=== PATIENT | male | born 1995 | race Caucasian/White ===

== ENCOUNTER 2023-04-16 14:08 | Emergency (ER) | payer MEDICARE, SELFPAY ==
[2023-04-16 14:11] VITALS: BP 109/72; PULSE 114; RESP 14; TEMP 37.5; O2SAT 95
--- NOTE | 2023-04-16 14:34 | W.ED.GENAD ---
Discharge Plan Discharge Details Chief Complaint: PsychEval Clinical Impression: Depression Primary Care Provider: Gurinder Clark ED Provider: Isidro Mckeon Home Meds and New Rx's Prescriptions: No Action No Known Home Meds Medical Decision Making 27 yo male who states he has a hx of depression and has been [place] [facility] [place] for [place]/si who comes in with cc of a month or so of worsening depression and thoughts of self harm with a knnife. Denies attempting to harm himself. HE is ambulatory with normal gait on arrival, caox4 calm and cooperative. HE has clear speech, no focal deficits, cn ii-xii intact. Hr minimally elevated so can't use smart clearance form, will order screening labs and if unremarkable have [facility] evaluate. labs unremarkable, pt stable, medically cleared to see [facility], ua/urine drug screen pending pt seen by [facility] and will be seeking voluntary placement Differential Diagnosis Differential Diagnosis: depression,si Lab Data Lab results reviewed: Yes I reviewed the patient's lab results. HPI General Mode of arrival: ambulatory (with vsp). Date/Time Provider Initiated Documentation: 04/16/23 14:18. Limitations to Documentation: no limitations. Information obtained by: patient. History of Present Illness 27 year old M presents to the emergency department with the chief complaint of depression/si, described as moderate, Patient started experiencing this month(s) (1) and it has been constant. No relieving factors improve symptom(s), No exacerbating factors reported . Patient notes no other symptoms.. Patient did receive the following treatments prior to arrival, none Related Data Home Medications Medication Instructions Recorded Confirmed Unknown [No Known Home Meds] 04/16/23 04/16/23 Allergies Allergy/AdvReac Type Severity Reaction Status Date / Time amoxicillin Allergy Severe Anaphylaxis Verified 04/16/23 14:52 azithromycin Allergy Severe Anaphylaxis Verified 04/16/23 14:52 bee venom protein (honey bee) Allergy Severe Anaphylaxis Verified 04/16/23 14:52 Latex, Natural Rubber Allergy Severe Anaphylaxis Verified 04/16/23 14:52 penicillins Allergy Severe Anaphylaxis Uncoded 04/16/23 14:52 General Stated Complaint: PsychEval ESTHER: 2 Review of Systems All systems reviewed & are unremarkable except as noted in HPI and below Constitutional Constitutional: Denies chills, Denies fever(s) and Denies weakness Cardiovascular Cardiovascular: Denies chest pain and Denies dyspnea Respiratory Respiratory: Denies cough and Denies dyspnea Gastrointestinal Gastrointestinal: Denies abdominal pain, Denies nausea and Denies vomiting Genitourinary Genitourinary: Denies dysuria Musculoskeletal Musculoskeletal: Denies joint swelling Neurologic Neurologic: Denies weakness PFSH All Active Problems (Updated 04/16/23 @ 17:17 by Isidro Mckeon MD) Depression (Chronic) Social History Smoking/Tobacco Use Status: Never Smoking risk assessment performed?: Yes Drug use: Daily Substance use type: marijuana Do you feel safe at home: Yes Do you feel safe in your relationship?: Yes Exam Const General: no acute distress Orientation: alert HENMT Head: normal to inspection Ears: external ears normal General nose exam: external nose normal Mouth: moist mucous membranes Eyes General: appearance normal, both eyes and all related structures Neck Neck: normal visual inspection Resp Effort & Inspection: normal respiratory effort and able to speak in complete sentences Cardio Rate: regular rate Skin General skin exam: no rashes or lesions noted Neuro General: patient alert and patient oriented x3 Extrem General: normal to inspection Psych Appearance: well kempt Speech and Movement: not agitated and speech clear Course Vital Signs Vital signs: Vital Signs Temperature 37.5 C 04/16/23 14:11 Pulse 114 H 04/16/23 14:11 Respiratory Rate 14 04/16/23 14:11 Blood Pressure 109/72 04/16/23 14:11 Pulse Oximetry 95 04/16/23 14:11 Temperature 37.5 C 04/16/23 14:11 Temperature Source Skin 04/16/23 14:11 Pulse 114 H 04/16/23 14:11 Respiratory Rate 14 04/16/23 14:11 Blood Pressure 109/72 04/16/23 14:11 Blood Pressure Position Sitting 04/16/23 14:11 Pulse Oximetry 95 04/16/23 14:11 Oxygen Delivery Method Room Air 04/16/23 14:11 Oxygen Flow Rate 0 04/16/23 14:11 Pain Level 0 04/16/23 14:11
[2023-04-16 15:03] LABS: Abs Immature Grans 0.03 10^3/uL (0.0-0.06); Absolute Basophil Count 0.04 10^3/uL (0.0-0.2); Absolute Eosinophil Count 0.05 10^3/uL (0.0-0.7); Absolute Lymphocyte Count 0.91 10^3/uL (1.2-3.4); Basophils % 0.4; Eosinophils % 0.5; HCT 44.1 % (40.0-50.0); HGB 14.5 g/dL (13.5-17.5); Immature Grans % 0.3; Lymphocytes % 8.4; MCH 28.3 pg (27.0-33.0); MCHC 32.9 % (32.0-36.0); MCV 86 fL (80-95); MPV 8.3 fL (8.0-11.0); Monocytes % 3.7; Neutrophils % 86.7; Platelet Count 275 10^3/uL (130-400); RBC 5.12 10^6/uL (4.36-5.78); RDW 12.5 % (11.8-14.1); RDW-SD 39.2 fL; WBC 10.81 10^3/uL (4.4-10.8)
[2023-04-16 15:08] LABS: Absolute Neutrophil Count 9.37 10^3/uL (1.2-6.7)
[2023-04-16 15:27] LABS: ALT 43 U/L (16-63); AST 37 U/L (15-37); Albumin 4.1 g/dL (3.4-5.0); Alkaline Phosphatase 92 U/L (46-116); Anion Gap 9.2 mmol/L (3-11); BUN 16 mg/dL (7-18); Bilirubin, Total 0.2 mg/dL (0.2-1.0); CO2 27.8 mmol/L (21.0-32.0); Calcium 9.4 mg/dL (8.5-10.1); Chloride 105 mmol/L (98-107); Estimated GFR 105.79 (mL/min/1.73m2); Glucose 99 mg/dL (74-106); Potassium 3.6 mmol/L (3.5-5.1); Sodium 142 mmol/L (136-145); TSH (W/Ref FT4) 0.85 uIU/mL (0.36-3.74); Total Protein 7.8 g/dL (6.4-8.2)
[2023-04-16 15:35] LABS: Salicylate < 2.8 mg/dL (<2.8)
[2023-04-16 15:37] LABS: Acetaminophen < 2 ug/mL (10-30); ETHANOL BLOOD < 3.0 mg/dL (<10)
--- NOTE | 2023-04-16 16:34 | CMSP_ITS ---
Date of service: 04/16/23 Time of Service: 16:34 Care Management Safety Plan Status Status: Voluntary Reason for Wait Reason for Wait: Inpatient Admission Safety Plan Safety Plan: Derek is a 27 year old man admitted on 04/16/23 with a history of depression, who has had worsening depression with thoughts of self harm with a knife. He was brought to the ED by P for SI with a knife. He is seeking voluntary psychiatric placement. VOLUNTARY FOR INPATIENT PSYCHIATRIC STABILIZATION.? Patient is appropriate in all interactions since arriving at [facility]; Pt has demonstrated appropriate coping and communication skills, has articulated his or her needs and concerns and is fully engaged during staff interactions. Safety plan has been established with patient, and care team, to adhere to patient goals, identify restrictions based on behavioral status, address nutrition, and determine allowed personal belongings, tools for hygiene and personal care. Determine level of activity including ambulation, level of supervision, visitors, and determine privileges based on behaviors and level of engagement by pt. SAFETY PLAN: 1. Will remain on suicide precautions. In Paper Clothes 2. Will remain in room under direct supervision of one-on-one staff at all times provided by [employer]; BO, GWOT IA/ILO INTELLIGENCE SUPPORT forensic pathologist. 3. May have paper cups, plates, finger foods as well as a cardboard spoon with which to eat meals. 4. Follow [facility] Management of the Admitted Behavioral Health Patient policy. 5. Comfort bath system only, shower permitted with escort at RN discretion. 6. No personal belongings-soft items permitted at RN discretion. 7. Visitors-none at this time. 8. Activities: soft cart items approved per RN discretion. 9.? Bathroom privileges with escort in the ED, available in room without limitation on M/S. 10. Phone: contact limited to family at this time, via cordless phone at RN discretion. 11. Due to VOLUNTARY status, if patient wishes to leave [facility], staff will contact [facility] Crisis Screener ([phone]) and On-Call Ammunition Assembly I Laborer ([phone]) as soon as possible. In the event of elopement, notify [facility] Police ([phone]). Patient is currently voluntarily at [facility] and seeking inpatient admission when a bed becomes available. [facility] Frontline Composite Science Teacher will continue seeking placement. Please contact the Radio Interference Investigator Ammunition Assembly I Laborer ([phone]) and [facility] Composite Science Teacher ([phone]) for any needed changes in the Safety Plan. Safety plan has been provided to interdepartmental care team.
--- NOTE | 2023-04-16 22:41 | W.EDPROG ---
Date of service: 04/16/23 Time of Service: 23:00 Medical Decision Making This patient was signed out to me. Please see previous notes for H&P and initial eval. In brief, 27yo M presenting voluntary for SI, thoughts of self harm with a knife. Medically cleared, pending psych placement. No acute events overnight. Plan remains voluntary psych placement pending bed availability. Sign Out Sign Out Data: Sign Out Comment: voluntary for depression/si, no issues during shift Last updated by Isidro Mckeon MD at 04/16/23 17:18 Sign Out Comment: 27yo M, SI, voluntary. No acute behavioral events overnight. Pending placement. Last updated by Adriana Randolph MD at 04/17/23 04:30 Discharge Plan Discharge Details Chief Complaint: PsychEval Clinical Impression: Depression Primary Care Provider: Gurinder Clark ED Provider: Adriana Randolph Home Meds and New Rx's Prescriptions: No Action No Known Home Meds
--- NOTE | 2023-04-17 07:38 | W.EDPROG ---
Date of service: 04/17/23 Time of Service: 07:38 Medical Decision Making PSYCH BOARDER The patient is medically stable for psychiatric admission under voluntary EE status . There are no available psychiatric beds at this time, so ED Holding orders have been entered and the transfer process has been initiated. Patient is being monitored per protocol, is stable without current issues. Sign Out Sign Out Data: Sign Out Comment: voluntary for depression/si, no issues during shift Last updated by Isidro Mckeon MD at 04/16/23 17:18 Sign Out Comment: 27yo M, SI, voluntary. No acute behavioral events overnight. Pending placement. Last updated by Adriana Randolph MD at 04/17/23 04:30 Discharge Plan Discharge Details Chief Complaint: PsychEval Clinical Impression: Depression Primary Care Provider: Gurinder Clark ED Provider: Donna Boucher Home Meds and New Rx's Prescriptions: No Action No Known Home Meds
[2023-04-17 07:51] VITALS: BP 102/63; PULSE 67; RESP 12; TEMP 36.4; O2SAT 98
[2023-04-17 09:22] LABS: Bilirubin Negative (Negative); Blood Negative (Negative); Clarity Cloudy (Clear); Glucose Negative (Negative); Ketones Negative (Negative); Leukocyte Esterase Negative (Negative); Nitrite Negative (Negative); Urobilinogen 0.2 mg/dL (Up to 0.2); pH 7.5 (5-8)
[2023-04-17 09:34] LABS: *AMPHETAMINES SCREEN URINE Negative (Negative); *BARBITURATES SCREEN URINE Negative (Negative); *BENZODIAZEPINES SCREEN URINE Negative (Negative); Cannabinoids THC Negative (Negative); Cocaine Screen,Urine Negative (Negative); METHADONE URINE SCREEN Negative (Negative); OPIATES URINE SCREEN Negative (Negative)
[2023-04-17 09:35] LABS: Tricyclic Antidepressants Negative (Negative)
--- NOTE | 2023-04-17 16:17 | CMSP_ITS ---
Date of service: 04/17/23 Time of Service: 16:17 Care Management Safety Plan Status Status: Voluntary Reason for Wait Reason for Wait: Inpatient Admission Safety Plan Safety Plan: Derek is a 27 year old man admitted on 04/16/23 with a history of depression, who has had worsening depression with thoughts of self harm with a knife. He was brought to the ED by P for SI with a knife. He is seeking voluntary psychiatric placement. He has told staff that he prefers to go to [facility] as that is where he receives his care. [facility] crisis is aware and will attempt to reach out to [facility] again tomorrow. A call was placed yesterday with no call back. VOLUNTARY FOR INPATIENT PSYCHIATRIC STABILIZATION.? Patient is appropriate in all interactions since arriving at [facility]; Pt has demonstrated appropriate coping and communication skills, has articulated his or her needs and concerns and is fully engaged during staff interactions. Safety plan has been established with patient, and care team, to adhere to patient goals, identify restrictions based on behavioral status, address nutrition, and determine allowed personal belongings, tools for hygiene and p ersonal care. Determine level of activity including ambulation, level of supervision, visitors, and determine privileges based on behaviors and level of engagement by pt. SAFETY PLAN: 1. Will remain on suicide precautions. In Paper Clothes 2. Will remain in room under direct supervision of one-on-one staff at all times provided by [employer]; BO, TECHNICAL PROPOSAL WRITER wage and hour investigator. 3. May have paper cups, plates, finger foods as well as a cardboard spoon with which to eat meals. 4. Follow [facility] Management of the Admitted Behavioral Health Patient policy. 5. Comfort bath system only, shower permitted with escort at RN discretion. 6. No personal belongings-soft items permitted at RN discretion. 7. Visitors-none at this time. 8. Activities: soft cart items approved per RN discretion. 9.? Bathroom privileges with escort in the ED, available in room without limitation on M/S. 10. Phone: contact limited to family at this time, via cordless phone at RN discretion. 11. Due to VOLUNTARY status, if patient wishes to leave [facility], staff will contact [facility] Crisis Screener ([phone]) and On-Call Adjunct Communications Faculty Member ([phone]) as soon as possible. In the event of elopement, notify [facility] Police ([phone]). Patient is currently voluntarily at [facility] and seeking inpatient admission when a bed becomes available. [facility] Frontline Disposal Worker will continue seeking placement. Please contact the Rn Paralegal Adjunct Communications Faculty Member ([phone]) and [facility] Disposal Worker ([phone]) for any needed changes in the Safety Plan. Safety plan has been provided to interdepartmental care team.
[2023-04-17 20:00] VITALS: BP 109/68; PULSE 90; RESP 18; TEMP 36.8; O2SAT 97
--- NOTE | 2023-04-18 07:20 | W.EDPROG ---
Date of service: 04/18/23 Time of Service: 07:20 Medical Decision Making Patient slept throughout the night. No interventions needed are given. Sign Out Sign Out Data: Sign Out Comment: voluntary for depression/si, no issues during shift Last updated by Isidro Mckeon MD at 04/16/23 17:18 Sign Out Comment: 27yo M, SI, voluntary. No acute behavioral events overnight. Pending placement. Last updated by Adriana Randolph MD at 04/17/23 04:30 Sign Out Comment: voluntary SI, medically cleared, pending placement. no issues. Last updated by Donna Boucher MD at 04/17/23 16:14 Sign Out Comment: voluntary SI, medically cleared, pending placement Last updated by Canelo Oh MD at 04/17/23 23:20 Discharge Plan Discharge Details Chief Complaint: PsychEval Clinical Impression: Depression Primary Care Provider: Gurinder Clark ED Provider: Canelo Oh Home Meds and New Rx's Prescriptions: No Action No Known Home Meds
[2023-04-18 08:21] VITALS: BP 102/68; PULSE 102; RESP 16; TEMP 36.2; O2SAT 97
--- NOTE | 2023-04-18 10:08 | W.EDPROG ---
Date of service: 04/18/23 Time of Service: 10:08 Medical Decision Making PSYCH BOARDER The patient is medically stable for psychiatric admission under voluntary status . There are no available psychiatric beds at this time, so ED Holding orders have been entered and the transfer process has been initiated. Patient is being monitored per protocol, is stable without current issues. Sign Out Sign Out Data: Sign Out Comment: voluntary for depression/si, no issues during shift Last updated by Isidro Mckeon MD at 04/16/23 17:18 Sign Out Comment: 27yo M, SI, voluntary. No acute behavioral events overnight. Pending placement. Last updated by Adriana Randolph MD at 04/17/23 04:30 Sign Out Comment: voluntary SI, medically cleared, pending placement. no issues. Last updated by Donna Boucher MD at 04/17/23 16:14 Sign Out Comment: voluntary SI, medically cleared, pending placement Last updated by Canelo Oh MD at 04/17/23 23:20 Sign Out Comment: Voluntary suicidal ideations. Medically cleared. Pending placement. Patient stable throughout the night. No acute behavioral events noted. Last updated by Rex Messina DO at 04/18/23 07:21 Discharge Plan Discharge Details Chief Complaint: PsychEval Clinical Impression: Depression Primary Care Provider: Gurinder Clark ED Provider: Rex Messina Home Meds and New Rx's Prescriptions: No Action No Known Home Meds
--- NOTE | 2023-04-18 11:19 | PDOC.CMSAFE ---
Date of service: 04/18/23 Time of Service: 11:19 Care Management Safety Plan Status Status: Voluntary Reason for Wait Reason for Wait: Inpatient Admission (Awaiting inpatient admission at an accepting psychiatric facility. ) Safety Plan Safety Plan: Derek is a 27 year old man admitted on 04/16/23 with a history of depression, who has had worsening depression with thoughts of self harm with a knife. He was brought to the ED by P for SI with a knife. He is seeking voluntary psychiatric placement. VOLUNTARY FOR INPATIENT PSYCHIATRIC STABILIZATION.? Patient is appropriate in all interactions since arriving at [facility]; Pt has demonstrated appropriate coping and communication skills, has articulated his or her needs and concerns and is fully engaged during staff interactions. Safety plan has been established with patient, and care team, to adhere to patient goals, identify restrictions based on behavioral status, address nutrition, and determine allowed personal belongings, tools for hygiene and personal care. Determine level of activity including ambulation, level of supervision, visitors, and determine privileges based on behaviors and level of engagement by pt. SAFETY PLAN: 1. Will remain on suicide precautions. In Paper Clothes 2. Will remain in room under direct supervision of one-on-one staff at all times provided by [employer]; BO, AIR CARGO GROUND OPERATIONS SUPERVISOR quarantine inspector. 3. May have paper cups, plates, finger foods as well as a cardboard spoon with which to eat meals. 4. Follow [facility] Management of the Admitted Behavioral Health Patient policy. 5. Comfort bath system only, shower permitted with escort at RN discretion. 6. No personal belongings-soft items permitted at RN discretion. 7. Visitors-none at this time. 8. Activities: soft cart items approved per RN discretion. 9.? Bathroom privileges with escort in the ED, available in room without limitation on M/S. 10. Phone: contact limited to family at this time, via cordless phone at RN discretion. 11. Due to VOLUNTARY status, if patient wishes to leave [facility], staff will contact [facility] Crisis Screener ([phone]) and On-Call Sheet Metal Duct Installer Apprentice ([phone]) as soon as possible. In the event of elopement, notify [facility] Police ([phone]). Patient is currently voluntarily at [facility] and seeking inpatient admission when a bed becomes available. [facility] Frontline Medical Historian will continue seeking placement. Please contact the Hospitalist Sheet Metal Duct Installer Apprentice ([phone]) and [facility] Medical Historian ([phone]) for any needed changes in the Safety Plan. Safety plan has been provided to interdepartmental care team.
[2023-04-18 14:55] VITALS: BP 103/67; PULSE 86; RESP 16; TEMP 36.7; O2SAT 97
--- NOTE | 2023-04-18 15:44 | ED.PROG_ITS ---
Date of service: 04/18/23 Time of Service: 15:45 Medical Decision Making patient accepted for transfer to [place]. Discussed with Dr Elizabeth for acceptance Sign Out Sign Out Data: Sign Out Comment: voluntary for depression/si, no issues during shift Last updated by Isidro Mckeon MD at 04/16/23 17:18 Sign Out Comment: 27yo M, SI, voluntary. No acute behavioral events overnight. Pending placement. Last updated by Adriana Randolph MD at 04/17/23 04:30 Sign Out Comment: voluntary SI, medically cleared, pending placement. no issue s. Last updated by Donna Boucher MD at 04/17/23 16:14 Sign Out Comment: voluntary SI, medically cleared, pending placement Last updated by Canelo Oh MD at 04/17/23 23:20 Sign Out Comment: Voluntary suicidal ideations. Medically cleared. Pending placement. Patient stable throughout the night. No acute behavioral events noted. Last updated by Rex Messina DO at 04/18/23 07:21 Discharge Plan Discharge Details Chief Complaint: PsychEval Clinical Impression: Depression Primary Care Provider: Gurinder Clark ED Provider: Donna Boucher Home Meds and New Rx's Prescriptions: No Action No Known Home Meds
[2023-04-18 18:16] VITALS: BP 103/67; PULSE 86; O2SAT 97
== END 2023-04-18 18:24 ==
PROVIDERS: Emergency Medicine; Emergency Provider Student in an Organized Health Care Education/Training Program; PCP Orthopaedic Surgery Foot and Ankle Surgery
DX: R45.851 Suicidal ideations (principal); F32.A Depression, unspecified; Z79.899 Other long term (current) drug therapy
CPT/HCPCS: 00123; 80053; 80307; 99285; 80320; 80329; 81003; 84443; 85025